=== PATIENT | male | born 1955 | race Caucasian/White ===

== ENCOUNTER 2020-02-23 09:10 | Inpatient (IN) | payer MEDICARE, OTHER ==
[~2020-02-23] VITALS: Ht 175.3 cm; Wt 98.3 kg
[~2020-02-23 09:10] MED LIST: ADULT LOW DOSE81 MG; GLUCOPHAGE1000 MG; GLUCOTROL10 MG; HYDROCHLOROTHIA25 M2; LISINOPRIL40 MG; PROAIR HFA8.5 GM IH
[2020-02-23 09:12] VITALS: BP 110/68
[2020-02-23 10:10] LABS: HEMATOCRIT 37.7 % (42.0-52.0); HEMOGLOBIN 12.9 gm/dL (14.0-18.0); MCH 30.4 pg (26.0-34.0); MCHC 34.2 g/dL (28.0-37.0); MCV 88.8 fL (80.0-100.0); MPV 8.3 fl. (7.2-11.1); NUCLEATED RBCS 0 /100WBC; PLATELET COUNT* 246 thou/uL (150-400); RBC 4.24 mil/uL (4.50-6.00); RDW-CV 12.5 % (10.5-14.5); WBC 16.9 thou/uL (4.0-11.0)
[2020-02-23 10:12] LABS: URINE BLOOD NEGATIVE (Negative); URINE CLARITY CLEAR; URINE COLOR YELLOW; URINE GLUCOSE-RANDOM 2+ (Negative); URINE KETONES 1+ (Negative); URINE LEUKOCYTES-REFLEX NEGATIVE (Negative); URINE PROTEIN 3+ (Negative); URINE SPECIFIC GRAVITY >= 1.030 (1.005-1.030); URINE UROBILINOGEN >= 8.0 E.U./dl (0.2-1.0)
[2020-02-23] MEDS ORDERED: OMEPRAZOLE 20 M20 M1 PO (10:12)
[2020-02-23] MEDS ORDERED: SINGULAIR 10 MG10 M1 PO (10:12)
[2020-02-23] MEDS ORDERED: AMARYL4 MG PO (10:12)
[2020-02-23 10:13] LABS: URINE BILIRUBIN 1+ (Negative); URINE NITRITE-REFLEX POSITIVE (Negative)
[2020-02-23] MEDS ORDERED: FISH OIL 1,0001 EAC1 PO (10:13)
[2020-02-23] MEDS ORDERED: VITAMIN D350 MCG PO (10:13)
[2020-02-23] MEDS ORDERED: SUPER THERAVIT1 EACH PO (10:13)
[2020-02-23 10:14] LABS: ICTOTEST (BILI CONFIRMATORY) Positive (Negative)
[2020-02-23] MEDS ORDERED: CHILDREN'S ALLER5 M1 PO (10:14)
[2020-02-23] MEDS ORDERED: GLUCOSAMINE &1 EACH PO (10:15)
[2020-02-23 10:22] LABS: POTASSIUM 3.5 mmol/L (3.5-5.1)
[2020-02-23 10:27] LABS: TOTAL PROTEIN 6.3 g/dL (6.4-8.2)
[2020-02-23 10:28] LABS: BACTERIA-REFLEX >30 Many /HPF (None Seen); CASTS None Seen /LPF (None Seen); CRYSTALS None Seen /LPF (None Seen); SQUAMOUS 0-3 Few /LPF (0-3); URINE RBC 0-2 Rare /HPF (0-2); URINE WBC-REFLEX 6-15 Few /HPF (0-5)
[2020-02-23 10:41] LABS: ABSOLUTE LYMPHOCYTES 0.7 thou/uL (0.8-5.3); ABSOLUTE MONOCYTES 0.3 thou/uL (0.0-1.2); ABSOLUTE NEUTROPHILS 15.9 thou/uL (1.6-8.1); PLATELET ESTIMATE ADEQUATE
[2020-02-23 14:10] VITALS: BP 104/53
[2020-02-23 15:00] VITALS: BP 107/55
[2020-02-23 20:00] VITALS: BP 118/58
[2020-02-24 00:01] VITALS: BP 114/60
[2020-02-24 04:31] LABS: HEMATOCRIT 36.5 % (42.0-52.0); HEMOGLOBIN 12.6 gm/dL (14.0-18.0); MCH 30.9 pg (26.0-34.0); MCHC 34.5 g/dL (28.0-37.0); MCV 89.7 fL (80.0-100.0); MPV 8.4 fl. (7.2-11.1); RBC 4.06 mil/uL (4.50-6.00); RDW-CV 12.5 % (10.5-14.5); WBC 10.5 thou/uL (4.0-11.0)
[2020-02-24 05:03] LABS: CALCIUM 8.4 mg/dL (8.5-10.1); MAGNESIUM 1.4 mg/dL (1.8-2.4)
[2020-02-24 08:00] VITALS: BP 127/53
[2020-02-24 15:46] VITALS: BP 126/55
[2020-02-24 20:25] VITALS: BP 132/56
[2020-02-25 00:17] VITALS: BP 96/57
[2020-02-25 02:55] LABS: HEMATOCRIT 36.3 % (42.0-52.0); HEMOGLOBIN 12.5 gm/dL (14.0-18.0); MCH 30.7 pg (26.0-34.0); MCHC 34.4 g/dL (28.0-37.0); MCV 89.1 fL (80.0-100.0); RBC 4.07 mil/uL (4.50-6.00); RDW-CV 12.6 % (10.5-14.5); WBC 7.1 thou/uL (4.0-11.0)
[2020-02-25 03:08] LABS: CALCIUM 8.6 mg/dL (8.5-10.1); CREATININE 0.9 mg/dL (0.6-1.3); MAGNESIUM 1.6 mg/dL (1.8-2.4)
[2020-02-25 08:07] VITALS: BP 136/61
[2020-02-25] MEDS ORDERED: CEFUROXIME250 MG PO (09:45)
[2020-02-25] MEDS ORDERED: FLORANEX TABLE1 EACH PO (09:45)
[2020-02-25 11:30] VITALS: BP 136/61
== END 2020-02-25 14:27 | disposition home or self-care (01) | DRG 872 ==
LOC: M.ERS 09:10 → M.2W 10:51 → M.TBA-ER 10:51 → M.2W 14:45
PROVIDERS: Emergency Medicine Emergency Medical Services; ADMIT Internal Medicine; ATTEND Internal Medicine
DX: A41.51 Sepsis due to Escherichia coli [E. coli] (principal); N39.0 Urinary tract infection, site not specified; B96.20 Unspecified Escherichia coli [E. coli] as the cause of diseases classified elsewhere; E66.9 Obesity, unspecified; E11.9 Type 2 diabetes mellitus without complications; N41.8 Other inflammatory diseases of prostate; I10 Essential (primary) hypertension; Z20.828 Contact with and (suspected) exposure to other viral communicable diseases; Z68.32 Body mass index [BMI] 32.0-32.9, adult; Z87.442 Personal history of urinary calculi; Z98.42 Cataract extraction status, left eye; Z98.41 Cataract extraction status, right eye; Z89.021 Acquired absence of right finger(s); Z79.82 Long term (current) use of aspirin; Z79.84 Long term (current) use of oral hypoglycemic drugs; Z79.899 Other long term (current) drug therapy